=== PATIENT | female | born 1970 | race Caucasian/White ===

== ENCOUNTER 2018-10-27 14:07 | Day surgery (SDC) | payer OTHER ==
[~2018-10-27] VITALS: Ht 154.9 cm; Wt 83.6 kg
[2018-10-27 14:26] VITALS: Ht 154.9 cm; Wt 83.6 kg
[2018-10-27] MEDS ORDERED: NO ACTIVE MEDS (14:32)
[2018-10-27 14:37] VITALS: BP 170/93; PULSE 81; RESP 22
[2018-10-27] MEDS ORDERED: LIDOCAINE 4% SOLUTION 50 ML BTL ONE (14:47)
[2018-10-27] MEDS ORDERED: MIDAZOLAM 1 MG/ML 2 ML INJ ONE ×2 (15:23)
[2018-10-27] MEDS ORDERED: FENTAnyl 50 MCG/ML VIAL ONE (15:23)
[2018-10-27 15:40] VITALS: BP 144/79; RESP 16
== END 2018-10-27 15:33 | disposition home or self-care (01) ==
LOC: GIL 14:07
PROVIDERS: ATTEND Internal Medicine
DX: K44.9 Diaphragmatic hernia without obstruction or gangrene (principal)
CPT/HCPCS: 43239; 84703; 88305; 88312; J2250; J3010; Z7610